=== PATIENT | male | born 1945 | race Caucasian/White ===

== ENCOUNTER 2020-12-29 09:51 | Outpatient (CLI) | payer MEDICARE, BC, SELFPAY ==
--- NOTE | 2020-12-29 10:01 | XR_ITS ---
WS: [id number] RIGHT SHOULDER: 3 VIEW(S) TECHNIQUE: Internal and external rotation with Y view. HISTORY: RIGHT SHOULDER PAIN COMPARISON: None available. Moderate narrowing of the AC joint. Osteophyte from the distal clavicle extends 7 mm towards the rota tor cuff. Moderate narrowing of the glenohumeral joint. Osteophyte from the humeral head encroaching into the g lenohumeral joint. Small subchondral cystic changes over the posterior lateral humeral head. XR/XR shoulder RT min 2V* [id number] IMPRESSION: Moderate AC joint and glenohumeral joint osteoarthritis.
== END 2020-12-29 09:52 | disposition home or self-care (01) ==
PROVIDERS: Visit Provider Emergency Medicine
DX: M19.011 Primary osteoarthritis, right shoulder (principal)
CPT/HCPCS: 73030

== ENCOUNTER 2022-04-18 14:58 | Outpatient (CLI) | payer MEDICARE, BC, SELFPAY ==
--- NOTE | 2022-04-18 15:15 | USCV_ITS ---
Keegan Florez Age: 76 Gender: M : 1945 Exam Date: 04/18/2022 15:07 Ordering Phys: Wolf Curran MD Technologist: CONOR [place] [facility] [place]: LLE PAIN AND SWELLING HISTORY: Lower extremity swelling. Lower extremity pain. PROCEDURES: Venous duplex imaging was performed in only the left lower extremity. The following venous structures were evaluated: common femoral vein, profunda vein, proximal portion of the greater saphenous vein, superficial femoral vein, and the popliteal vein. In addition, the posterior tibial and peroneal trunk were evaluated. Serial compression, augmentation maneuvers, and spectral Doppler flow evaluation were performed. FINDINGS: Normal 2-D Doppler and augmentation and compressibility throughout the lower extremity venous structures. Additional imaging through the proximal calf veins also reveals no thrombus. Limited evaluation of the greater saphenous vein is patent with no thrombus. Miltiloculated, heterogeneous mass with low level echos and no vascularity measuring 6.9 x 3.4 cm in the left popliteal fossa. CONCLUSIONS No evidence of left lower extremity DVT. Large heterogeneous popliteal cyst. Dr. Janie Dorsey DO (Electronically Signed) Final Date: 18 April 2022 16:13 S
== END 2022-04-18 14:59 | disposition home or self-care (01) ==
LOC: RAD 14:58
PROVIDERS: PCP Family Medicine; Visit Provider Family Medicine
DX: R60.0 Localized edema (principal); M79.605 Pain in left leg
CPT/HCPCS: 93971

== ENCOUNTER → 2022-06-07 08:42 | Outpatient (BNVA) | payer MEDICARE, BC, SELFPAY | PROVIDERS: PCP Family Medicine; Visit Provider Family Medicine | DX: Z00.00 Encounter for general adult medical examination without abnormal findings (principal); I10 Essential (primary) hypertension; R97.20 Elevated prostate specific antigen [PSA]; R60.9 Edema, unspecified; Z13.1 Encounter for screening for diabetes mellitus | CPT/HCPCS: 80053; 80061; 84153 ==

== ENCOUNTER → 2022-12-07 07:49 | Outpatient (BNVA) | payer MEDICARE, BC, SELFPAY | PROVIDERS: PCP Family Medicine; Visit Provider Family Medicine | DX: I10 Essential (primary) hypertension (principal); E78.5 Hyperlipidemia, unspecified; E11.9 Type 2 diabetes mellitus without complications; R97.20 Elevated prostate specific antigen [PSA] | CPT/HCPCS: 80053; 80061; 83036; 84153 ==

== ENCOUNTER → 2023-01-11 15:09 | Outpatient (BNVA) | payer MEDICARE, BC, SELFPAY | PROVIDERS: PCP Family Medicine; Visit Provider Surgery | DX: T14.8XXA Other injury of unspecified body region, initial encounter (principal); X58.XXXA Exposure to other specified factors, initial encounter | CPT/HCPCS: 99203 ==

== ENCOUNTER → 2023-06-10 10:09 | Outpatient (BNVA) | payer MEDICARE, BC, SELFPAY | PROVIDERS: PCP Family Medicine; Visit Provider Family Medicine | DX: R97.20 Elevated prostate specific antigen [PSA] (principal); E11.9 Type 2 diabetes mellitus without complications; E78.5 Hyperlipidemia, unspecified; I10 Essential (primary) hypertension | CPT/HCPCS: 80053; 80061; 83036 ==

== ENCOUNTER → 2023-07-25 09:15 | Outpatient (BNVA) | payer MEDICARE, SELFPAY | PROVIDERS: PCP Family Medicine; Visit Provider Nurse Practitioner Family | DX: L57.0 Actinic keratosis (principal); L82.1 Other seborrheic keratosis; D22.5 Melanocytic nevi of trunk; L57.8 Other skin changes due to chronic exposure to nonionizing radiation; L81.4 Other melanin hyperpigmentation | CPT/HCPCS: 17000; 99213 ==

== ENCOUNTER → 2023-12-06 10:41 | Outpatient (BNVA) | payer MEDICARE, SELFPAY | PROVIDERS: PCP Family Medicine; Visit Provider Family Medicine | DX: R97.20 Elevated prostate specific antigen [PSA] (principal); E11.9 Type 2 diabetes mellitus without complications; E78.5 Hyperlipidemia, unspecified; I10 Essential (primary) hypertension | CPT/HCPCS: 80053; 80061; 84153; 84550 ==

== ENCOUNTER → 2024-06-10 11:07 | Outpatient (BNVA) | payer MEDICARE, SELFPAY | PROVIDERS: PCP Family Medicine; Visit Provider Family Medicine | DX: I10 Essential (primary) hypertension (principal); R97.20 Elevated prostate specific antigen [PSA]; E78.5 Hyperlipidemia, unspecified; E11.9 Type 2 diabetes mellitus without complications | CPT/HCPCS: 80053; 83036; 84153 ==

== ENCOUNTER → 2024-12-07 12:45 | Outpatient (BNVA) | payer MEDICARE, SELFPAY | PROVIDERS: PCP Family Medicine; Visit Provider Family Medicine | DX: E78.5 Hyperlipidemia, unspecified (principal); E11.9 Type 2 diabetes mellitus without complications | CPT/HCPCS: 80053; 83036 ==

== ENCOUNTER 2024-12-10 18:44 | Emergency (ER) | payer MEDICARE, SELFPAY ==
[2024-12-10 18:50] VITALS: BP 166/77; PULSE 63; RESP 18; TEMP 36.6; O2SAT 97; BMI 28.5
--- NOTE | 2024-12-10 18:56 | ECG_ITS ---
[facility]10 Pat Name: Keegan Florez Department: Room: Gender: Male [employer] Escort: : 1945 Requested By: Ramon Pulliam Order Number: [id number] Najera MD: Heriberto Oakes M.D. Measurements Intervals [place] Rate: 62 P: 59 KS: 167 QRS: 18 QRSD: 101 T: 43 QT: 332 QTc: 338 Interpretive Statements SINUS RHYTHM NONSPECIFIC T-WAVE ABNORMALITY Compared to ECG 10/13/2015 09:29:19 T-wave abnormality now present Electronically Signed On 12-12-2024 07:43:25 CDT by Heriberto Oakes M.D. [email or web address]
--- NOTE | 2024-12-10 19:11 | XRR_ITS ---
PROCEDURE INFORMATION: Exam: XR Chest Exam date and time: 12/10/2024 7:17 PM Age: 79 years old Clinical indication: Cough; Additional info: Cough, near syncope TECHNIQUE: Imaging protocol: Radiologic exam of the chest. Views: 1 view. COMPARISON: CR XR shoulder RT min 2V* [id number] 12/29/2020 10:07 AM FINDINGS: Lungs: Unremarkable. No consolidation. Pleural spaces: Unremarkable. No pleural effusion. No pneumothorax. Heart/Mediastinum: Mild cardiomegaly. Bones/joints: Unremarkable. XR/XR chest 1V portable [id number] IMPRESSION: No acute cardiopulmonary findings.
--- NOTE | 2024-12-10 19:23 | ED_ITS ---
HPI - URI/Sore Throat 2 General: Chief Complaint: Upper Respiratory Infection Stated Complaint: cough, lost balance, High BP, Time Seen by Provider: 12/10/24 19:04 Source: patient Mode of arrival: ambulatory History of Present Illness: Cough starting Saturday night, gradual getting little worse today noticed himself to have some elevated blood pressure after having an episode of dizziness. Which he describes as more of a near syncope like feeling then a vertiginous episode. Patient is on Flomax. As well as trazodone. Related Data Home Medications ?Medication ?Instructions ?Recorded ?Confirmed aspirin 81 mg tablet,delayed 81 mg PO DAILY 04/17/22 0 12/08/24 release (Adult Aspirin Regimen) Previous Rx's ?Medication ?Instructions ?Recorded trazodone 150 mg tablet See Rx Instructions .Route 0 02/21/24 .COMPLEX #30 tabs amlodipine 5 mg tablet 5 mg PO DAILY #30 tabs 04/02 hydrochlorothiazide 25 mg tablet 25 mg PO DAILY #90 ta bs 06/10/24 tamsulosin 0.4 mg capsule 0.4 mg PO DAILY #30 caps folic acid 1 mg tablet 1 mg PO DAILY #90 tabs 06/11 allopurinol 300 mg tablet See Rx Instructions .Route 1 11/10/23 .COMPLEX #90 tabs promethazine-DM 6.25 mg-15 mg/5 mL 5 ml PO Q4H PRN cou gh #118 mL 12/10/24 oral syrup Allergies Allergy/AdvReac Type Severity Reaction Status Date / Time amlodipine AdvReac Intermediate edema at Verified 12/10/24 18:58 higher dose Review of Systems 2 General: Reports: 10 or more systems reviewed and unremarkable except in HPI and below PFSH ED 2 PFSH: Medical History Prostate cancer Sees Dr. Castaneda, biopsy pos 2024. Just monitoring History of cataract Elevated PSA Diabetes mellitus Hyperlipidemia Hypertension Surgical History History of rotator cuff surgery Left History of knee replacement Right History of back surgery Social History Smoking and tobacco/nicotine status: former use of tobacco/nicotine Physical Exam 2 Const: COMMON NORMALS: no acute distress, average body habitus, patient oriented x3, healthy appearing, alert and well nourished GENERAL APPEARANCE: well kempt and well developed HENMT: COMMON NORMALS: normocephalic, atraumatic, external ears normal and moist oral mucous membranes HEAD & SCALP: normocephalic and atraumatic E XTERNAL EAR: Yes external ears normal Eye: COMMON NORMALS: Equal, round and reactive pupils present, EOMs intact bilaterally and conjunctivae normal CONJUNCTIVA: Yes conjunctivae normal P UPIL: Yes Equal, round and reactive pupils present Neck/C-Spine: COMMON NORMALS: full ROM, no lymphadenopathy and supple Chest: CHEST: Yes Symmetrical chest wall rise and No Surgical scars present (Chest) Resp: COMMON NORMALS: normal respiratory effort, No retractions, No use of accessory muscles and clear to auscultation bilaterally AUSCULTATION: clear to auscultation bilaterally Cardio: COMMON NORMALS: regular rate, regular rhythm, S1 normal heart sound present, S2 normal heart sound present, No gallops present (Cardio), No clicks present (Cardio), No murmurs present (Cardio) and No rub (Cardio) RATE: r egular rate RHYTHM: regular rhythm HEART SOUNDS: S1 normal heart sound present, S2 normal heart sound present and no murmurs PERIPHERAL PULSES: o ther (Radial pulses 2+ and symmetric) GI: COMMON NORMALS: Soft to palpation, non-tender and no masses INSPECTION: No abdominal distension PALPATION: Yes Soft to palpation, No Guarding due to palpation present (GI) and No Rebound tenderness present : COMMON NORMALS: Yes no CVA tenderness BLADDER/KIDNEY EXAM: Yes no CVA tenderness Back/Pelvis: COMMON NORMALS: no CVA tenderness Extremity: COMMON NORMALS: normal to inspection, full ROM, capillary refill normal and no clubbing, cyanosis or edema Neuro: COMMON NORMALS: patient oriented x3 SENSORIUM/ORIENTATION: Yes alert Psych: APPEARANCE: Yes well kempt Skin: COMMON NORMALS: no rashes or lesions noted, no wounds, turgor normal and no jaundice GENERAL SKIN EXAM: no rashes or lesions noted and turgor normal Course 2 Vital Signs: Vital signs: Vital Signs Temperature 97.9 F 12/10/24 18:50 Pulse Rate 63 12/10/24 18:50 Respiratory Rate 18 12/10/24 18:50 Blood Pressure 166/77 12/10/24 18:50 Pulse Oximetry 97 12/10/24 18:50 MDM - URI/Sore Throat Medical Decision Making Patient found to have influenza, x-ray unremarkable. D-dimer unremarkable. Labs as a whole are unremarkable. Except for the positive flu a result. Patient has had the results discussed with him. Including that we are already 2 days in and so no indication for Tamiflu or Xofluza. Patient expresses understanding need for hydration. Will prescribe cough medication. Differential Diagnosis Likely upper respiratory infection, sinusitis, viral infection, bronchitis and influenza Medical Records I reviewed the patient's medical records. Lab Data I reviewed the patient's lab results. 12/10/24 19:24 12/10/24 19:24 Radiology Impressions Chest X-Ray 12/10/24 19:11 IMPRESSION: No acute cardiopulmonary findings. Laboratory Results WBC 6.71 10^3/uL (3.29-11.43) 12/10/24 19: RBC 4.74 10^6/uL (3.85-5.65) 12/10/24 19:24 Hgb 14.60 g/dL (11.27-16.99) 12/10/24 19:24 Hct 42.1 % (37-53) 12/10/24 19:24 MCV 88.8 fl (82-101) 12/10/24 19:24 MCH 30.8 pg (27-33) 12/10/24 19:24 MCHC 34.7 g/dL (30-55) 12/10/24 19:24 RDW 13.9 % (12.1-15.1) 12/10/24 19:24 Plt Count 140 10^3/cmm (157-399) L 12/10/24 19:24 MPV 10.8 fL (7.4-10.4) H 12/10/24 19:24 Neut % (Auto) 80.2 % 12/10/24 19: Lymph % (Auto) 11.0 % 12/10/24 19:24 [place] % (Auto) 6.9 % 12/10/24 19:24 Eos % (Auto) 1.5 % 12/10/24 19: Baso % (Auto) 0.1 % 12/10/24 19:24 Neut # (Auto) 5.38 10^3/uL (1.8-7.7) 12/10/24 19:24 Lymph # (Auto) 0.7 10^3/uL (0.8-4.8) L 12/10/24 19:24 [place] # (Auto) 0.5 10^3/uL (0.2-0.9) 12/10/24 19:24 Eos # (Auto) 0.1 10^3/uL (0.0-0.8) 12/10/24 19:24 Baso # (Auto) 0.0 10^3/uL (0.0-0.1) 12/10/24 19: Nucleated RBC % (auto) 0 % 12/10/24: Nucleated RBCs # 0.0 /100WBC 12/10/24 19:24 D-Dimer 0.43 ug/mLFEU (0-0.59) 12/10/24 19:24 Sodium 136 mmol/L (136-145) 12/10/24 19:24 Potassium 3.3 mmol/L (3.5-5.1) L 12/10/24 19:24 Chloride 97 mmol/L (98-107) L 12/10/24 19:24 Carbon Dioxide 27 mmol/L (22-29) 12/10/24 19:24 Anion Gap 15.3 (5-19) 12/10/24 19:24 BUN 15 mg/dL (8-23) 12/10/24 19:24 Creatinine 0.6 mg/dL (0.7-1.2) L 12/10/24 19:24 GFR Calculation Not Reportable 12/10/24 19:24 Glucose 152 mg/dL (65-115) H 12/10/24 19:24 Calculated Osmolality 286 mOsm/kg (285-295) 12/10/24 19:24 Calcium 8.9 mg/dL (8.5-10.5) 12/10/24 19:24 Influenza A (PCR) Positive (Negative) 12/10/24 19:05 Influenza Type B (PCR) Negative (Negative) 12/10/24 19:05 RSV (PCR) Negative (Negative) 12/10/24 19:05 SARS-CoV-2 (PCR) Negative (Negative) 03/20/25 19:05 All radiology interpretation(s) finalized by discharge ED provider radiology interpretation(s): No acute abnormality Discharge Plan Discharge Patient Disposition: Home Clinical Impression: Influenza Condition: Stable Prescriptions: New promethazine-DM 6.25-15 mg/5 mL syrup 5 ml PO Q4H PRN (Reason: cough) Qty: 118 0RF No Action tamsulosin 0.4 mg capsule 0.4 mg PO DAILY Qty: 30 11RF hydrochlorothiazide 25 mg tablet 25 mg PO DAILY Qty: 90 3RF aspirin [Adult Aspirin Regimen] 81 mg tablet,delayed release (DR/EC) 81 mg PO DAILY trazodone 150 mg tablet See Rx Instructions .ROUTE .COMPLEX Qty: 30 11RF Dose Instruction: TAKE 1 TABLET BY MOUTH AT NIGHT FOR INSOMNIA Rx Instructions: TAKE 1 TABLET BY MOUTH AT NIGHT FOR INSOMNIA amlodipine 5 mg tablet 5 mg PO DAILY Qty: 30 11RF folic acid 1 mg tablet 1 mg PO DAILY Qty: 90 3RF allopurinol 300 mg tablet See Rx Instructions .ROUTE .COMPLEX Qty: 90 3RF Dose Instruction: TAKE 1 TABLET BY MOUTH ONCE DAILY FOR GOUT Rx Instructions: TAKE 1 TABLET BY MOUTH ONCE DAILY FOR GOUT Discharge Orders: Discharge ED (Routine); Ordered 12/10/24 Ordered By: Ramon Pulliam Referrals: Wolf Curran MD [Primary Care Provider] - Discharge Diet: Usual diet Discharge Activity: Resume usual activity Patient Instructions: Influenza (ED) Print Language: Nicaraguan Coding Level of Care Code ED Transport Medic for Stefani Sanchez
[2024-12-10 19:32] LABS: Basophils % 0.1 %; Eosinophils # 0.1 10^3/uL (0.0-0.8); Eosinophils % 1.5 %; Hematocrit 42.1 % (37-53); Lymphocytes # 0.7 10^3/uL (0.8-4.8); Mean Corpuscular HGB Conc 34.7 g/dL (30-55); Mean Corpuscular Hemoglobin 30.8 pg (27-33); Mean Corpuscular Volume 88.8 fl (82-101); Mean Platelet Volume 10.8 fL (7.4-10.4); Monocytes # 0.5 10^3/uL (0.2-0.9); Monocytes % 6.9 %; Neutrophils # 5.38 10^3/uL (1.8-7.7); Neutrophils % 80.2 %; Nucleated Red Blood Cells % 0 %; Platelet Count 140 10^3/cmm (157-399); Red Blood Count 4.74 10^6/uL (3.85-5.65); Red Cell Distribution Width 13.9 % (12.1-15.1); White Blood Count 6.71 10^3/uL (3.29-11.43)
[2024-12-10 19:52] LABS: D Dimer 0.43 ug/mLFEU (0-0.59)
[2024-12-10 19:54] LABS: Anion Gap 15.3 (5-19); Blood Urea Nitrogen 15 mg/dL (8-23); Calcium 8.9 mg/dL (8.5-10.5); Carbon Dioxide 27 mmol/L (22-29); Chloride 97 mmol/L (98-107); Glucose 152 mg/dL (65-115); Osmolality Calculated 286 mOsm/kg (285-295); Potassium 3.3 mmol/L (3.5-5.1); Sodium 136 mmol/L (136-145)
[2024-12-10 19:57] LABS: Influenza A POSITIVE (Negative); Influenza B NEGATIVE (Negative); Respiratory Syncytial Virus Ce NEGATIVE (Negative); SARS-CoV-2 PCR NEGATIVE (Negative)
[2024-12-10 20:22] VITALS: BP 150/90; PULSE 74; RESP 20; O2SAT 94
== END 2024-12-10 20:24 | disposition home or self-care (01) ==
PROVIDERS: Emergency Provider Emergency Medicine; PCP Family Medicine
DX: J10.1 Influenza due to other identified influenza virus with other respiratory manifestations (principal); Z11.52 Encounter for screening for COVID-19; Z79.82 Long term (current) use of aspirin; Z87.891 Personal history of nicotine dependence; E78.5 Hyperlipidemia, unspecified; I10 Essential (primary) hypertension; E11.9 Type 2 diabetes mellitus without complications; Z85.46 Personal history of malignant neoplasm of prostate
CPT/HCPCS: 36415; 71045; 80048; 85025; 85378; 87637; 93005; 99285

== ENCOUNTER 2024-12-14 08:22 | Emergency (ER) | payer MEDICARE, SELFPAY ==
[2024-12-14 08:35] VITALS: BP 176/82; PULSE 70; RESP 20; TEMP 36.6; O2SAT 94
[2024-12-14] MEDS: ondansetron 2 mg/ML SDV 2 mL 4 MG IVP (08:58)
[2024-12-14] MEDS: orphenadrine 30 mg/mL Inj 2 mL 60 MG IV (08:59)
[2024-12-14] MEDS: dexamethasone 10 mg/mL INJ IV (09:00)
[2024-12-14] MEDS: ketorolac 30 mg/mL INJ IVP (09:00)
[2024-12-14] MEDS: morphine 4 mg/mL SDV 1 mL IVP (09:01)
--- NOTE | 2024-12-14 09:01 | W.ED.BACK ---
HPI - Back Pain/Injury General: Chief Complaint: Back Pain/Injury Stated Complaint: L Leg lots of pain Time Seen by Provider: 12/14/24 08:43 Source: patient Mode of arrival: ambulatory Limitations: no limitations History of Present Illness: Patient is a very nice 79-year-old male who presents to the ED today complaining of pain to his left lower back with radiation down into his left hip/buttock and down the left lower extremity. Patient states symptoms been present over the past 2 days or so. No known injury or trauma. He states back in 2014 he had almost identical symptoms and was diagnosed with bursitis, sciatica, and piriformis syndrome all at the same time . He was treated by his primary care provider, Dr. Curran with medications and physical therapy and recovered well. Patient is not complaining of any numbness, tingling, loss of sensation to the leg. He is not having any saddle anesthesia or bowel or bladder dysfunction. He is ambulatory here although this does exacerbate his pain. He has not noticed any swelling to the leg or calf pain. No color or temperature changes. At rest he is rating his pain at a 6/10 but when he gets up and ambulates it shoots his pain to over a 10 . MD elicited complaint: back pain Pertinent past history: prior back pain Onset (ago): day(s) Timing: constant Severity: severe Similar Symptoms Previously: Yes Quality: burning and sharp Location: left lower back Radiation: left leg below the knee Exacerbating factors: movement and walking Relieving factors: other (lying flat) Associated symptoms: Reports difficulty walking (due to pain in L LE); Deny abdominal pain, dysuria or urinary urgency Work related injury: No Related Data Home Medications ?Medication ?Instructions ?Recorded ?Confirmed aspirin 81 mg tablet,delayed 81 mg PO DAILY 04/17/22 12/14/24 release (Adult Aspirin Regimen) cholecalciferol (vitamin D3) 125 125 mcg PO DAILY 12/14/24 12/14/24 mcg (5,000 unit) tablet (Vitamin D3) glucosamine sulfate 750 mg tablet 750 mg PO DAILY 12/14/24 12/14/24 ibuprofen 200 mg tablet (Advil) 400 mg PO Q6H PRN Fever Or Pain 12/14/24 12/14/24 mjlgyyig-dw-pyupd 300 mcg-K 60 1 tab PO DAILY 12/14/24 12/14/24 mcg-lycop 600 mcg-lutein 300 mcg tablet (Men 50 Plus Multivitamin) Previous Rx's ?Medication ?Instructions ?Recorded trazodone 150 mg tablet See Rx Instructions .Route 02/21/24 .COMPLEX #30 tabs amlodipine 5 mg tablet 5 mg PO DAILY #30 tabs 04/02/24 hydrochlorothiazide 25 mg tablet 25 mg PO DAILY #90 tabs 06/10/24 tamsulosin 0.4 mg capsule 0.4 mg PO DAILY #30 caps 06/10/24 folic acid 1 mg tablet 1 mg PO DAILY #90 tabs 06/11/24 allopurinol 300 mg tablet See Rx Instructions .Route 09/09/24 .COMPLEX #90 tabs promethazine-DM 6.25 mg-15 mg/5 mL 5 ml PO Q4H PRN cough #118 mL 12/10/24 oral syrup methocarbamol 500 mg tablet 1,000 mg (2 x 500 mg) PO Q8H #30 12/14/24 tabs prednisone 10 mg tablet 10 mg PO DAILY 6 days #20 tabs 12/14/24 Allergies Allergy/AdvReac Type Severity Reaction Status Date / Time amlodipine AdvReac Intermediate edema at Verified 12/10/24 18:58 higher dose Review of Systems Card: Denies: chest pain Resp: Denies: dyspnea GI: Denies: abdominal pain : Denies: flank pain, difficulty urinating, dysuria, urinary frequency, urinary urgency or urinary hesitancy Musc: Reports: back pain, extremity pain and joint pain; Denies: neck pain, extremity swelling, joint swelling, joint redness, joint warmth, joint stiffness, muscle cramps or muscle weakness Neuro: Reports: difficulty walking (due to pain in L LE); Denies: headache(s), numbness in extremities, weakness in extremities or sensory changes PFSH ED PFSH: Medical History Prostate cancer Sees Dr. Castaneda, biopsy pos 2024. Just monitoring History of cataract Elevated PSA Diabetes mellitus Hyperlipidemia Hypertension Surgical History History of rotator cuff surgery Left History of knee replacement Right History of back surgery Social History Smoking and tobacco/nicotine status: former use of tobacco/nicotine Physical Exam Const: COMMON NORMALS: no acute distress, average body habitus, patient oriented x3, no limitations, healthy appearing, alert and well nourished GENERAL APPEARANCE: cooperative ORIENTATION/CONSCIOUSNESS: Yes awake, Yes oriented to person, Yes oriented to place and Yes oriented to time HENMT: COMMON NORMALS: normocephalic and atraumatic HEAD & SCALP: normal to inspection, normocephalic and atraumatic Neck/C-Spine: COMMON NORMALS: full ROM; negative for no meningeal signs GENERAL: Yes normal visual inspection CERVICAL SPINE: Yes cervical ROM normal Resp: COMMON NORMALS: normal respiratory effort and clear to auscultation bilaterally AUSCULTATION: clear to auscultation bilaterally Cardio: COMMON NORMALS: regular rate and regular rhythm RATE: regular rate RHYTHM: regular rhythm GI: COMMON NORMALS: Normal to inspection, nondistended, normoactive bowel sounds present, Soft to palpation, non-tender, No hepatosplenomegaly present, no masses and no bruits PALPATION: Yes Soft to palpation and Yes No hepatosplenomegaly present : COMMON NORMALS: Yes no CVA tenderness BLADDER/KIDNEY EXAM: Yes no CVA tenderness Back/Pelvis: COMMON NORMALS: no CVA tenderness and straight leg raise negative bilaterally THORACIC SPINE/UPPER BACK: No thoracic spinal tenderness and No paraspinal muscle tenderness LUMBAR SPINE/LOWER BACK: No lumbar spinal tenderness PELVIS: Yes sciatic notch tenderness on the left SACROILIAC JOINTS: Yes SI joint(s) abnormal SI joint details: tender to palpation (TTP L ) SACRUM: no tenderness COCCYX: no tenderness Extremity: COMMON NORMALS: normal to inspection, full ROM, capillary refill normal, no joint enlargement, no clubbing, cyanosis or edema, no calf tenderness and no pedal edema GENERAL: Yes normal exam except as noted OTHER: L LE with intact DP/PT pulses; sensation is normal; cap refill is brisk; no edema or calf pain present; no erythema/warmth, no coolness/pallor Neuro: COMMON NORMALS: patient oriented x3, moves all extremities, no focal motor deficits and no sensory deficits noted SENSORIUM/ORIENTATION: Yes alert, Yes oriented to person, Yes oriented to place and Yes oriented to time MENINGEAL SIGNS: No no meningeal signs Skin: COMMON NORMALS: no rashes or lesions noted GENERAL SKIN EXAM: no rashes or lesions noted Course Vital Signs: Vital signs: Vital Signs Temperature 97.8 F 12/14/24 08:35 Pulse Rate 64 12/14/24 09:03 Respiratory Rate 20 H 12/14/24 08:35 Blood Pressure 155/78 12/14/24 09:03 Pulse Oximetry 90 12/14/24 09:03 Oxygen Delivery Me thod Room Air 12/14/24 08:35 MDM - Back Pain/Injury Medical Decision Making Patient here for left-sided lower back pain radiating down into his left hip/buttock and down his left lower extremity. No acute neurologic deficits. There is no indication for emergent imaging as this would be unlikely to change coordinator at this time. He does feel better after IV medications provided here. He was ambulatory here in the emergency department. Recommend he follow-up with Dr. Curran this week or next for re-evaluation. Return precautions discussed. Differential Diagnosis Likely lumbar radiculopathy and sciatica Medical Records I reviewed the patient's medical records. No radiology studies performed this visit Discharge Plan Discharge Patient Disposition: Home Clinical Impression: Acute left-sided back pain with sciatica Condition: Stable Prescriptions: New methocarbamol 500 mg tablet 1,000 mg PO Q8H Qty: 30 0RF prednisone 10 mg tablet 10 mg PO DAILY 6 Days Qty: 20 0RF Rx Instructions: Take 5 tabs on day 1-2, 4 tabs on day 3, 3 tabs on day 4, 2 tabs on day 5, and 1 tab on day 6 No Action tamsulosin 0.4 mg capsule 0.4 mg PO DAILY Qty: 30 11RF hydrochlorothiazide 25 mg tablet 25 mg PO DAILY Qty: 90 3RF aspirin [Adult Aspirin Regimen] 81 mg tablet,delayed release (DR/EC) 81 mg PO DAILY trazodone 150 mg tablet See Rx Instructions .ROUTE .COMPLEX Qty: 30 11RF Dose Instruction: TAKE 1 TABLET BY MOUTH AT NIGHT FOR INSOMNIA Rx Instructions: TAKE 1 TABLET BY MOUTH AT NIGHT FOR INSOMNIA amlodipine 5 mg tablet 5 mg PO DAILY Qty: 30 11RF folic acid 1 mg tablet 1 mg PO DAILY Qty: 90 3RF allopurinol 300 mg tablet See Rx Instructions .ROUTE .COMPLEX Qty: 90 3RF Dose Instruction: TAKE 1 TABLET BY MOUTH ONCE DAILY FOR GOUT Rx Instructions: TAKE 1 TABLET BY MOUTH ONCE DAILY FOR GOUT ibuprofen [Advil] 200 mg Tablet 400 mg PO Q6H PRN (Reason: Fever Or Pain) glucosamine sulfate [Glucosamine] 750 mg Tablet 750 mg PO DAILY Rx Instructions: administer with a meal cholecalciferol (vitamin D3) [Vitamin D3] 125 mcg (5,000 unit) Tablet 125 mcg PO DAILY Men 50 Plus Multivitamin [id number] mcg Tablet 1 tab PO DAILY promethazine-DM 6.25-15 mg/5 mL syrup 5 ml PO Q4H PRN (Reason: cough) Qty: 118 0RF Discharge Orders: Discharge ED (Routine); Ordered 12/14/24 Ordered By: Aisha George Referrals: Wolf Curran MD [Primary Care Provider] - Activity Restrictions/Additional Instructions: As we discussed, please follow-up with your primary care provider in the next 1 to 2 weeks for further evaluation and treatment if needed. I will place you on steroids and muscle relaxers to help with discomfort. If you are not already, I would begin taking an cdtd-vud-qteagof anti-inflammatory such as Ibuprofen (800mg every 6-8 hours). Print Language: Khmer Coding Level of Care Code ED Chief Legal Officer for Stefani Sanchez
[2024-12-14 09:03] VITALS: BP 155/78; PULSE 64; O2SAT 90
[2024-12-14 10:04] VITALS: BP 155/71; PULSE 61; O2SAT 92
== END 2024-12-14 10:35 | disposition home or self-care (01) ==
PROVIDERS: Emergency Provider Physician Assistant; PCP Family Medicine
DX: M54.32 Sciatica, left side (principal); M54.50 Low back pain, unspecified; Z87.891 Personal history of nicotine dependence; E11.9 Type 2 diabetes mellitus without complications; Z85.46 Personal history of malignant neoplasm of prostate; E78.5 Hyperlipidemia, unspecified; I10 Essential (primary) hypertension
CPT/HCPCS: 96374; 96375; 99284; J1100; J1885; J2270; J2360; J2405

== ENCOUNTER 2024-12-30 11:25 | Outpatient (CLI) | payer MEDICARE, BC, SELFPAY ==
--- NOTE | 2024-12-30 11:45 | MR_ITS ---
WS: [id number] MRI LUMBAR SPINE NONCONTRAST HISTORY: sciatica. left leg weakness COMPARISON: 11/12/2017 TECHNIQUE: Sagittal and axial multisequence imaging is submitted. L4 anterolisthesis by 6.3 mm. L2 retrolisthesis by 3 mm. No acute fractures or marrow edema. Disc spaces are narrowed, most significant at L2-3. Conus terminates normally at L1-2 disc level. L1-L2: Annular disc bulging with moderate facet and ligamentum flavum hypertrophy, greater on the LEFT. Progressive facet joint arthritis and encroachment upon the posterior lateral thecal sac. Mild central and subarticular recess stenosis. L2-L3: Diffuse osteophytic ridging with annular disc bulging and facet arthropathy. Protrusions and osteophyte encroach upon the thecal sac, subarticular recesses and foramina. Severe central, bilateral subarticular recess and LEFT foraminal stenosis. Moderate RIGHT foraminal stenosis. L3-L4: Diffuse annular disc bulging with osteophytic ridging. Intermediate signal extending into the LEFT subarticular recess this probably a small disc fragment. This fragment or extrusion contacting and displacing the LEFT lateral thecal sac posterior to L4. Moderate to severe central, bilateral subarticular recess and moderate foraminal stenosis. L4-L5: Diffuse annular disc bulging with osteophytic ridging, ligamentum flavum and facet arthritis. Fluid in the LEFT facet joint. Moderate central with severe bilateral subarticular recess and LEFT foraminal stenosis. Moderate RIGHT foraminal stenosis. L5-S1: Diffuse annular disc bulging with disc contacting the S1 nerve roots. Severe ligamentum flavum and facet arthritis. Moderate central, bilateral subarticular recess and foraminal stenosis. Bilateral renal cysts. MR/MR lumbar spine wo con* [id number] IMPRESSION: 1. Significant interval progression of degenerative changes throughout the lum bar spine and areas of stenosis since 2018. 2. L2-3: Severe central, bilateral subarticular recess and LEFT foraminal sten osis. Moderate RIGHT foraminal stenosis. 3. L3-4: Moderate to severe central with bilateral subarticular recess and mod erate foraminal stenosis. Intermediate signal extending into the LEFT subarticu lar recess appears to be an extruded disc or small disc fragment extending jaelyn g the subarticular recess, posterior to L4. Disc fragment or extrusion is new. 4. L4-5: Moderate central with severe bilateral subarticular recess and LEFT f oraminal stenosis. Moderate RIGHT foraminal stenosis. 5. L4 anterolisthesis by 6.3 mm. 6. L5-S1: Moderate central, bilateral subarticular recess and foraminal stenos is. 7. L1-2: Mild central and subarticular recess stenosis.
== END 2024-12-30 11:26 | disposition home or self-care (01) ==
PROVIDERS: PCP Family Medicine; Visit Provider Family Medicine
DX: M54.30 Sciatica, unspecified side (principal); M51.369 Other intervertebral disc degeneration, lumbar region without mention of lumbar back pain or lower extremity pain; M48.061 Spinal stenosis, lumbar region without neurogenic claudication; M43.16 Spondylolisthesis, lumbar region; M48.07 Spinal stenosis, lumbosacral region; M24.28 Disorder of ligament, vertebrae; M25.78 Osteophyte, vertebrae; M47.896 Other spondylosis, lumbar region; M51.26 Other intervertebral disc displacement, lumbar region; M51.379 Other intervertebral disc degeneration, lumbosacral region without mention of lumbar back pain or lower extremity pain; M47.897 Other spondylosis, lumbosacral region; N28.1 Cyst of kidney, acquired
CPT/HCPCS: 72148

== ENCOUNTER → 2025-01-21 14:46 | Outpatient (BNVA) | payer MEDICARE, BC, SELFPAY | PROVIDERS: PCP Family Medicine; Visit Provider Orthopaedic Surgery | DX: M54.30 Sciatica, unspecified side (principal) | CPT/HCPCS: 72110; 99203 ==

== ENCOUNTER 2025-01-28 06:56 | Emergency (ER) | payer MEDICARE, BC, SELFPAY ==
[2025-01-28 07:05] VITALS: BP 176/89; PULSE 70; RESP 18; TEMP 36.8; O2SAT 95; BMI 28.5
--- NOTE | 2025-01-28 07:17 | ED_ITS ---
HPI - Ear Problem General: Chief complaint: Ear Stated complaint: Ear Pain Time Seen by Provider: 01/28/25 06:59 History of Present Illness: 79-year-old male presents emergency room complaining of right-sided ear pain without drainage began 2 days ago. He is put some hydrogen peroxide on it without relief. No direct injury. Associated symptoms: Reports ear or mastoid pain; Denies fever(s) Related Data Home Medications ?Medication ?Instructions ?Recorded ?Confirmed aspirin 81 mg tablet,delayed 81 mg PO DAILY 04/17/22 0 01/21/25 release (Adult Aspirin Regimen) cholecalciferol (vitamin D3) 125 125 mcg PO DAILY 11/2201/21/25 mcg (5,000 unit) tablet (Vitamin D3) glucosamine sulfate 750 mg tablet 750 mg PO DAILY 11/2201/21/25 ibuprofen 200 mg tablet (Advil) 400 mg PO Q6H PRN Feve r Or Pain 12/14/24 01/21/25 vbdxyrhs-rm-[id number] 300 mcg-K 60 1 tab PO DAILY 12/14/24 01/21/25 mcg-lycop 600 mcg-lutein 300 mcg tablet (Men 50 Plus Multivitamin) Previous Rx's ?Medication ?Instructions ?Recorded trazodone 150 mg tablet See Rx Instructions .Route 0 02/21/24 .COMPLEX #30 tabs amlodipine 5 mg tablet 5 mg PO DAILY #30 tabs 04/02 hydrochlorothiazide 25 mg tablet 25 mg PO DAILY #90 ta bs 06/10/24 tamsulosin 0.4 mg capsule 0.4 mg PO DAILY #30 caps folic acid 1 mg tablet 1 mg PO DAILY #90 tabs 06/11 allopurinol 300 mg tablet See Rx Instructions .Route 1 11/10/23 .COMPLEX #90 tabs methocarbamol 500 mg tablet 1,000 mg (2 x 500 mg) PO Q 8H #30 12/14/24 tabs hydrocodone 5 mg-acetaminophen 325 1 tab PO Q8H PRN pa in 2 weeks #30 12/22/24 mg tablet tabs amoxicillin 875 mg tablet 875 mg PO BID #20 tabs 01/28 Allergies Allergy/AdvReac Type Severity Reaction Status Date / Time amlodipine AdvReac Intermediate edema at Verified 01/21/25 15:12 higher dose Review of Systems Const: Denies: fever(s) or chills ENMT: Reports: ear or mastoid pain; Denies: ear discharge PFSH ED PFSH: Medical History Prostate cancer Sees Dr. Castaneda, biopsy pos 2024. Just monitoring History of cataract Elevated PSA Diabetes mellitus Hyperlipidemia Hypertension Surgical History History of rotator cuff surgery Left History of knee replacement Right History of back surgery Social History Smoking and tobacco/nicotine status: former use of tobacco/nicotine Physical Exam Const: GENERAL APPEARANCE: cooperative ORIENTATION/CONSCIOUSNESS: Yes awake, Yes oriented to person, Yes oriented to place and Yes oriented to time HENMT: COMMON NORMALS: normocephalic, atraumatic and hearing grossly normal bilaterally HEAD & SCALP: normocephalic and atraumatic OTHER: Right TM red and inflamed partially occluded by bits of dried cerumen extra auditory canal is clear left TM external auditory canal are clear Resp: COMMON NORMALS: normal respiratory effort, No retractions, No use of accessory muscles and clear to auscultation bilaterally AUSCULTATION: clear to auscultation bilaterally Cardio: COMMON NORMALS: regular rate, regular rhythm and No murmurs present (Cardio) RATE: regular rate RHYTHM: regular rhythm Extremity: COMMON NORMALS: normal to inspection, capillary refill normal, no clubbing, cyanosis or edema, no calf tenderness and no pedal edema Neuro: SENSORIUM/ORIENTATION: Yes oriented to person, Yes oriented to place and Yes oriented to time Skin: COMMON NORMALS: no rashes or lesions noted GENERAL SKIN EXAM: no rashes or lesions noted Course Vital Signs: Vital signs: Vital Signs Temperature 98.3 F 01/28/25 07:05 Pulse Rate 71 01/28/25 07:43 Respiratory Rate 18 01/28/25 07:05 Blood Pressure 168/88 01/28/25 07:43 Pulse Oximetry 97 01/28/25 07:43 Oxygen Delivery Me thod Room Air 01/28/25 07:05 MDM - Ear Medical Decision Making Right otitis media started on Amoxil 875 twice daily for 10 days follow-up with primary care if not improving. Can continue to use hydroperoxide or [id number] available preparations for wax removal. No radiology studies performed this visit Discharge Plan Discharge Patient Disposition: Home Clinical Impression: Acute right otitis media Condition: Stable Prescriptions: New amoxicillin 875 mg tablet 875 mg PO BID Qty: 20 0RF No Action tamsulosin 0.4 mg capsule 0.4 mg PO DAILY Qty: 30 11RF hydrochlorothiazide 25 mg tablet 25 mg PO DAILY Qty: 90 3RF aspirin [Adult Aspirin Regimen] 81 mg tablet,delayed release (DR/EC) 81 mg PO DAILY hydrocodone-acetaminophen 5-325 mg tablet 1 tab PO Q8H PRN (Reason: pain) 14 Days Qty: 30 0RF trazodone 150 mg tablet See Rx Instructions .ROUTE .COMPLEX Qty: 30 11RF Dose Instruction: TAKE 1 TABLET BY MOUTH AT NIGHT FOR INSOMNIA Rx Instructions: TAKE 1 TABLET BY MOUTH AT NIGHT FOR INSOMNIA amlodipine 5 mg tablet 5 mg PO DAILY Qty: 30 11RF folic acid 1 mg tablet 1 mg PO DAILY Qty: 90 3RF allopurinol 300 mg tablet See Rx Instructions .ROUTE .COMPLEX Qty: 90 3RF Dose Instruction: TAKE 1 TABLET BY MOUTH ONCE DAILY FOR GOUT Rx Instructions: TAKE 1 TABLET BY MOUTH ONCE DAILY FOR GOUT ibuprofen [Advil] 200 mg Tablet 400 mg PO Q6H PRN (Reason: Fever Or Pain) glucosamine sulfate [Glucosamine] 750 mg Tablet 750 mg PO DAILY Rx Instructions: administer with a meal cholecalciferol (vitamin D3) [Vitamin D3] 125 mcg (5,000 unit) Tablet 125 mcg PO DAILY Men 50 Plus Multivitamin [id number] mcg Tablet 1 tab PO DAILY methocarbamol 500 mg tablet 1,000 mg PO Q8H Qty: 30 0RF Discharge Orders: Discharge ED (Routine); Ordered 01/28/25 Ordered By: Leander Paniagua Referrals: Wolf Curran MD [Primary Care Provider, Family Practice] Discharge Diet: Usual diet Discharge Activity: Resume usual activity Patient Instructions: Otitis Media - Adult, Opioid Safety, Pain Management Activity Restrictions/Additional Instructions: Thank you for choosing [facility] for your healthcare needs today. It is very important that you follow up as instructed or that you return to the Emergency Department should you have concerns or if your condition changes or worsens in any way. 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
[2025-01-28 07:43] VITALS: BP 168/88; PULSE 71; O2SAT 97
== END 2025-01-28 07:44 | disposition home or self-care (01) ==
PROVIDERS: Emergency Provider Family Medicine; PCP Family Medicine
DX: H66.91 Otitis media, unspecified, right ear (principal); Z79.82 Long term (current) use of aspirin; Z87.891 Personal history of nicotine dependence; E11.9 Type 2 diabetes mellitus without complications; E78.5 Hyperlipidemia, unspecified; I10 Essential (primary) hypertension; Z85.46 Personal history of malignant neoplasm of prostate
CPT/HCPCS: 99283

== ENCOUNTER → 2025-04-05 08:52 | Outpatient (BNVA) | payer MEDICARE, BC, SELFPAY | PROVIDERS: PCP Family Medicine; Visit Provider Family Medicine | DX: C61 Malignant neoplasm of prostate (principal) | CPT/HCPCS: 84153 ==

== ENCOUNTER → 2025-06-10 10:52 | Outpatient (BNVA) | payer MEDICARE, BC, SELFPAY | PROVIDERS: PCP Family Medicine; Visit Provider Family Medicine | DX: I10 Essential (primary) hypertension (principal); E78.5 Hyperlipidemia, unspecified; E11.9 Type 2 diabetes mellitus without complications; C61 Malignant neoplasm of prostate | CPT/HCPCS: 80053; 80061; 83036; 84550; 85025 ==

== ENCOUNTER → 2025-07-27 10:14 | Outpatient (BNVA) | payer MEDICARE, BC, SELFPAY | PROVIDERS: PCP Family Medicine; Visit Provider Nurse Practitioner Family | DX: L40.8 Other psoriasis (principal); L57.8 Other skin changes due to chronic exposure to nonionizing radiation; L81.4 Other melanin hyperpigmentation; L82.1 Other seborrheic keratosis; D18.01 Hemangioma of skin and subcutaneous tissue; L57.0 Actinic keratosis; L82.0 Inflamed seborrheic keratosis; L53.8 Other specified erythematous conditions; Z78.9 Other specified health status; L29.89 Other pruritus | CPT/HCPCS: 10060; 17000; 17110; 99214 ==